=== PATIENT | male | born 1960 | race African-American/Black ===

== ENCOUNTER 2017-04-09 23:15 | Emergency (ER) | payer MEDICAID ==
[~2017-04-09] VITALS: Ht 190.5 cm; Wt 91.0 kg
[2017-04-10] MEDS ORDERED: HYDROCODONE/APAP 7.5/325MG 1 TAB TABLET PO ONE (03:45)
[2017-04-10] MEDS ORDERED: LIDOCAINE HCL 1% 20ML VIAL (Pyxis) INJ MC ONE (06:45)
[2017-04-10] MEDS ORDERED: BACITRACIN ZINC OINT UDPKT TOP ONE (06:45)
[2017-04-10] MEDS ORDERED: TETANUS, DIPHTHERIA, PERTUSSIS VAC/PF 0.5ML (>7YR OLD) IM ONE (06:45)
[2017-04-10 08:45] VITALS: BP 151/95
== END 2017-04-10 09:27 | disposition home or self-care (01) ==
LOC: ER 23:15
DX: S01.81XA Laceration without foreign body of other part of head, initial encounter (principal); F17.200 Nicotine dependence, unspecified, uncomplicated; F12.10 Cannabis abuse, uncomplicated; V49.9XXA Car occupant (driver) (passenger) injured in unspecified traffic accident, initial encounter; Y93.89 Activity, other specified; Y92.89 Other specified places as the place of occurrence of the external cause; Y99.8 Other external cause status; Z98.890 Other specified postprocedural states
CPT/HCPCS: 12015; 70450; 72125; 90471; 90715; 99284; J3490; Z7610